=== PATIENT | male | born 1955 | race African-American/Black ===

== ENCOUNTER 2017-08-30 10:02 | Inpatient (IN) | payer OTHER ==
[2017-08-29 13:26] VITALS: BMI 29.0
[2017-08-30] MEDS ORDERED: TRANEXAMIC ACID 1000 MG/10 ML VIAL IVPUSH ONE (10:47)
[2017-08-30] MEDS ORDERED: oxyCODONE HCL 10 MG SUSTAINED ACTING TABLET PO ONE (10:47)
[2017-08-30] MEDS ORDERED: CELECOXIB 200 MG CAPSULE PO ONE (10:47)
[2017-08-30] MEDS ORDERED: CEFAZOLIN 2 GM in DEXTROSE 5%-WATER - 50 ML IVPB ONE (10:47)
[2017-08-30] MEDS ORDERED: VANCOMYCIN 1,000 MG in DEXTROSE 5%-WATER - 250 ML IVPB ONE (10:47)
[2017-08-30] MEDS ORDERED: DEXAMETHASONE SOD PHOSPHATE/PF 10 MG/ML SDV ONE (12:59)
[2017-08-30] MEDS ORDERED: MIDAZOLAM HCL 2 MG/2 ML SINGLE DOSE VIAL ONE (12:59)
[2017-08-30] MEDS ORDERED: BUPIVACAINE HCL/PF (5 MG/ML) 30 ML VIAL IJ ONE (13:00)
[2017-08-30] MEDS ORDERED: VANCOMYCIN 1,000 MG VIAL (RESTRICTED TO ID ONLY) ONE (14:05)
[2017-08-30] MEDS ORDERED: ceFAZolin SODIUM 1 GM VIAL ONE (14:05)
[2017-08-30] MEDS ORDERED: PROPOFOL 20 ML ONE ×2 (14:06→14:44)
[2017-08-30] MEDS ORDERED: ONDANSETRON 4 MG/2 ML VIAL ONE (14:11)
[2017-08-30] MEDS ORDERED: BENZOIN/ALOE VERA/STORAX/TOLU 58 ML BOTTLE ONE (15:21)
[2017-08-30] MEDS ORDERED: LACTATED RINGERS SOLUTION 1,000 ML IV SCH (16:00)
[2017-08-30] MEDS ORDERED: ONDANSETRON 4 MG/2 ML VIAL IVPUSH PRN ×2 (16:00→16:20)
[2017-08-30] MEDS ORDERED: traMADol HCL 50 MG TABLET PO SCH (16:15)
[2017-08-30] MEDS ORDERED: INSULIN SLIDING SCALE (NOVOLOG) 1 VIAL SQ ONE (16:15)
[2017-08-30] MEDS ORDERED: traMADol HCL 50 MG TABLET ONE (16:19)
[2017-08-30] MEDS ORDERED: traMADol HCL 50 MG TABLET PO ONE (16:20)
--- NOTE | 2017-08-30 17:05 | OP ---
Operative Note - Note: Operative Date: 08/30/17 Pre-Operative Diagnosis: Left partial thickness quadriceps tendon tear Operation: Open repair left quadriceps tendon tear Post-Operative Diagnosis: Same as Pre-op Surgeon: Dyllan Curtis Herb Counselor: Vincent Curtis Anesthesiologist/OCCUPATIONAL THERAPY PROFESSOR: Irene Hickman Anesthesia: Spinal Estimated Blood Loss (mls): 0 Fluid Volume Replaced (mls): 1,000 Operative Report Dictated: Yes
--- NOTE | 2017-08-30 17:09 | PN ---
Progress Note (short form) - Note Progress Note: 62M s/p open repair left quadriceps tendon tear POD #0. -NWB LLE; crutch training. -No Left Knee ROM; maintain [place] brace locked in extension. -Pain control. -DVT PPx: -Chemical: ASA 81mg PO BID x 6 weeks. -Mechanical: JOAN's, SCD's. -Incentive spirometry. -PT/OT/Rehab, OOB. -NWB LLE. -No L knee ROM. -Maintain [place] brace locked in extension. -f/u post-op TOV. -f/u AM labs. -Care per primary medical team. -Tight glycemic control. -Discharge planning: f/u [facility] [place] office 09/07/2017. Call for appointment: . -Will follow. Dyllan Curtis MD (Orthopaedic Surgery).
[2017-08-30] MEDS: LACTATED RINGERS SOLUTION 1,000 ML IV SCH (18:32)
[2017-08-30] MEDS: INSULIN SLIDING SCALE (NOVOLOG) 1 VIAL SQ SCH ×2 (18:32→22:03)
[2017-08-30] MEDS: INSULIN (NOVOLOG) ASPART 100 UNITS/ML 10ML VIAL SQ SCH (18:33)
[2017-08-30] MEDS: traMADol HCL 50 MG TABLET PO SCH ×2 (18:34→23:49)
--- NOTE | 2017-08-30 19:26 | OP ---
DATE OF OPERATION: 08/30/2017 PREOPERATIVE DIAGNOSIS: Quadriceps tendon rupture. POSTOPERATIVE DIAGNOSIS: Quadriceps tendon rupture. OPERATION PERFORMED: Repair of quadriceps mechanism with FiberWire and Vicryl. SURGEON: Dyllan Curtis MD BLOCK CUBER: Vincent Curtis MD; GREYSON Jeffrey. ANESTHESIA: Spinal epidural with conscious sedation. ANTIBIOTICS GIVEN: Kefzol 2 g, vancomycin 1 g. DESCRIPTION OF PROCEDURE: Patient was correctly identified, brought into the operating room. The left lower extremity was prepped, free draped in the routine manner with Betadine scrub solution, wiped off with alcohol, DuraPrep applied. Midline incision was utilized. Initially, superficially, the tissues appeared to be completely normal. The rent above the patella was readily palpable. This was longitudinally opened, and the entire rupture of the quadriceps tendon noted from medial side to lateral side. Number 1 Vicryl interrupted sutures were placed in order to hold the tendon. Two Krackow sutures were utilized with Ethibond. Two drill holes were made in the patella using a Slade needle. This was fed through the actual holes drilled in the patella. This then enabled the placed Krackow sutures to be delivered as long threads through the holes in the patella and tied inferiorly to augment a bone-patella fixation. The wounds were thoroughly lavaged. Closure quadriceps tendon 1 Vicryl as noted, subcutaneous 1 and 2-0 Vicryl, skin 3-0 Monocryl, Steri-Strips. No drainage utilized. A [place] brace in extension applied. Operation went well. No complications. PLAN: Six weeks of 0 flexion, followed by gradual increased range of movement 20 degrees per week until full 3 months have transpired. MD HILARY Baez/[id number] MTDD
[2017-08-30] MEDS: ASPIRIN COATED 81 MG TABLET.EC PO SCH (21:28)
[2017-08-30] MEDS: SENNOSIDES/DOCUSATE COMBO (SENNA PLUS) TABLET (UD) PO SCH (21:28)
[2017-08-30] MEDS: ceFAZolin 2 GRAM PREMIX BAG IVPB SCH (21:28)
[2017-08-30] MEDS ORDERED: ATORVASTATIN CA 40 MG TABLET (FP) PO SCH (22:00)
[2017-08-30] MEDS ORDERED: ASPIRIN 325 MG TABLET PO SCH (22:00)
[2017-08-31] MEDS: ceFAZolin 2 GRAM PREMIX BAG IVPB SCH (05:46)
[2017-08-31] MEDS: traMADol HCL 50 MG TABLET PO SCH ×3 (05:47→17:03)
[2017-08-31] MEDS ORDERED: metFORMIN HCL 500 MG TABLET (FP) PO SCH (07:00)
[2017-08-31] MEDS ORDERED: INSULIN (LEVEMIR) 100 UNITS/ML UNITS SQ SCH (07:00)
[2017-08-31] MEDS ORDERED: sitaGLIPtin PHOSPHATE 50 MG TABLET PO SCH (07:00)
[2017-08-31] MEDS: INSULIN (NOVOLOG) ASPART 100 UNITS/ML 10ML VIAL SQ SCH ×3 (07:58→17:05)
[2017-08-31] MEDS: INSULIN SLIDING SCALE (NOVOLOG) 1 VIAL SQ SCH ×3 (07:58→17:05)
[2017-08-31] MEDS: ASPIRIN COATED 81 MG TABLET.EC PO SCH (09:52)
[2017-08-31] MEDS: SENNOSIDES/DOCUSATE COMBO (SENNA PLUS) TABLET (UD) PO SCH (09:53)
[2017-08-31] MEDS ORDERED: LOSARTAN POTASSIUM 50 MG TABLET (FP) PO SCH (10:00)
[2017-08-31] MEDS ORDERED: PANTOPRAZOLE 40 MG TABLET (FP) PO SCH (10:00)
[2017-08-31] MEDS ORDERED: MULTIVITAMINS (DAILY MVI) TABLET (FP) PO SCH (10:00)
--- NOTE | 2017-08-31 10:45 | CONSULT ---
Consultation: REQUESTING PROVIDER: Dr Curtis CONSULT REQUEST: We have been asked to medically evaluate this patient for medical management . HISTORY OF PRESENT ILLNESS: is a 62-year-old male with a past medical history of insulin-dependent diabetes and hypertension. patient is postoperative day one left quadricep tendon repair,Dr Curtis REVIEW OF SYSTEMS: CONSTITUTIONAL: Absent: fever, chills, diaphoresis, generalized weakness, malaise, loss of appetite, weight change HEENT: Absent: rhinorrhea, nasal congestion, throat pain, throat swelling, difficulty swallowing, mouth swelling, ear pain, eye pain, visual changes CARDIOVASCULAR: Absent: chest pain, syncope, palpitations, irregular heart rate, lightheadedness , peripheral edema RESPIRATORY: Absent: cough, shortness of breath, dyspnea with exertion, orthopnea, wheezing, stridor, hemoptysis GASTROINTESTINAL: Absent: abdominal pain, abdominal distension, nausea, vomiting, diarrhea, constipation, melena, hematochezia GENITOURINARY: Absent: dysuria, frequency, urgency, hesitancy, hematuria, flank pain, genital pain MUSCULOSKELETAL: Absent: myalgia, arthralgia, joint swelling, back pain, neck pain SKIN: Absent: rash, itching, pallor HEMATOLOGIC/IMMUNOLOGIC: Absent: easy bleeding, easy bruising, lymphadenopathy, frequent infections ENDOCRINE: Absent: unexplained weight gain, unexplained weight loss, heat intolerance, cold intolerance NEUROLOGIC: Absent: headache, focal weakness or paresthesias, dizziness, unsteady gait, seizure, mental status changes, bladder or bowel incontinence PSYCHIATRIC: Absent: anxiety, depression, suicidal or homicidal ideation, hallucinations. PHYSICAL EXAMINATION Vital Signs - 24 hr 08/30/17 08/30/17 08/30/17 11:39 15:56 16:00 Temperature 98.2 F 97.6 F Pulse Rate 84 78 69 Respiratory 18 18 18 Rate Blood Pressure 172/96 165/90 159/99 O2 Sat by Pulse 99 99 Oximetry (%) 08/30/17 08/30/17 08/30/17 16:05 16:10 16:25 Temperature Pulse Rate 79 75 79 Respiratory 18 18 18 Rate Blood Pressure 160/96 146/93 150/91 O2 Sat by Pulse 98 100 100 Oximetry (%) 08/30/17 08/30/17 08/30/17 16:40 16:55 17:10 Temperature 97.6 F Pulse Rate 79 81 82 Respiratory 18 18 18 Rate Blood Pressure 150/91 146/94 161/95 O2 Sat by Pulse 100 100 100 Oximetry (%) 08/30/17 08/30/17 08/30/17 17:20 17:55 20:07 Temperature 97.9 F 97.8 F Pulse Rate 84 84 Respiratory 16 16 16 Rate Blood Pressure 159/96 159/95 O2 Sat by Pulse 100 100 Oximetry (%) 08/30/17 08/31/17 08/31/17 21:50 06:22 08:25 Temperature 97.8 F 98.2 F Pulse Rate 101 H 105 H Respiratory 19 19 Rate Blood Pressure 160/82 177/91 O2 Sat by Pulse 97 96 96 Oximetry (%) GENERAL: Awake, alert, and fully oriented, in no acute distress. HEAD: Normal with no signs of trauma. EYES: Pupils equal, round and reactive to light, extraocular movements intact, sclera anicteric, conjunctiva clear. No lid lag. EARS, NOSE, THROAT: Ears normal, nares patent, oropharynx clear without exudates. Moist mucous membranes. NECK: Normal range of motion, supple without lymphadenopathy, JVD, or masses. LUNGS: Breath sounds equal, clear to auscultation bilaterally. No wheezes, and no crackles. No accessory muscle use. HEART: Regular rate and rhythm, normal S1 and S2 without murmur, rub or gallop. ABDOMEN: Soft, nontender, not distended, normoactive bowel sounds, no guarding, no rebound, no masses. No hepatomegaly or splenomegaly. MUSCULOSKELETAL: Normal range of motion at all joints. No bony deformities or tenderness. No CVA tenderness. UPPER EXTREMITIES: 2+ pulses, warm, well-perfused. No cyanosis. No clubbing. Cap refill <2 seconds. No peripheral edema. LOWER EXTREMITIES: 2+ pulses, warm, well-perfused. No calf tenderness. No peripheral edema. LEFT LOWER EXTREMITY: BEDSOE brace, dressings CDI, less than 2 second capillary refill plus for pedal pulse patient is able to move the digits of the foot without any difficulty Sal's/SCDs NEUROLOGICAL: Cranial nerves II-XII intact. Normal speech. Normal gait. PSYCHIATRIC: Cooperative. Good eye contact. Appropriate mood and affect. SKIN: Warm, dry, normal turgor, no rashes or lesions noted. Laboratory Results - last 24 hr 08/30/17 08/30/17 08/30/17 11:16 16:11 21:59 POC Glucometer 261 232 336 08/31/17 05:35 POC Glucometer 312 Active Medications Generic Name Dose Route Start Last Admin Trade Name Freq PRN Reason Stop Dose Admin Aspirin 81 mg 08/30/17 22:00 08/31/17 09:52 Ecotrin - PO 81 mg BID YENNY Administration Atorvastatin Calcium 40 mg 08/30/17 22:00 08/30/17 21:28 Lipitor - PO 40 mg HS YENNY Administration Fentanyl 50 mcg 08/30/17 16:20 Sublimaze Injection - IVPUSH [id number] PRN PAIN-PACU ORDER X 4 DOSES ONLY Lactated Ringer's 1,000 mls @ 75 mls/hr 08/30/17 16:30 08/30/17 18:32 Lactated Ringers Solution IV Not Given ASDIR YENNY Insulin Aspart 10 units 08/30/17 16:30 08/31/17 07:58 Novolog Vial SQ 10 units TIDAC YENNY Administration Insulin Aspart 1 vial 08/30/17 16:30 08/31/17 07:58 Novolog Vial Sliding Scale - SQ Not Given ACHS [facility] Protocol Insulin Detemir 30 units 08/31/17 07:00 08/31/17 07:58 Levemir Vial SQ 30 units AM YENNY Administration Losartan Potassium 100 mg 08/31/17 10:00 08/31/17 09:53 Cozaar - PO 100 mg DAILY YENNY Administration Metformin HCl 500 mg 08/31/17 07:00 08/31/17 06:05 Glucophage - PO 500 mg AM YENNY Administration Multivitamins/Minerals/Vitamin C 1 tab 08/31/17 10:00 08/31/17 09:53 Tab-A-Vit - PO 1 tab DAILY YENNY Administration Ondansetron HCl 4 mg 08/30/17 16:00 Zofran Injection IVPUSH Q6H PRN NAUSEA Ondansetron HCl 4 mg 08/30/17 16:20 Zofran Injection IVPUSH Q6H PRN NAUSEA AND/OR VOMITING Oxycodone/Acetaminophen 1 combo 08/30/17 16:06 08/31/17 09:47 Percocet 5/325 - PO 1 combo Q6H PRN Administration PAIN LEVEL 6-10 Pantoprazole Sodium 40 mg 08/31/17 10:00 08/31/17 09:49 Protonix - PO 40 mg DAILY YENNY Administration Senna/Docusate Sodium 1 tablet 08/30/17 22:00 08/31/17 09:53 Pericolace - PO 1 tablet BID YENNY Administration Sitagliptin Phosphate 50 mg 08/31/17 07:00 08/31/17 06:05 Januvia - PO 50 mg AM YENNY Administration Tramadol HCl 50 mg 08/30/17 16:16 08/31/17 05:47 Ultram - PO 50 mg Q6HPO YENNY Administration ASSESSMENT/PLAN: 1) MS s/p left quadricep repair, POD #1 - when necessary pain medication -Nonweightbearing to left lower extremity which brace as per the orthopedist - physical Therapy as per the orthopedist 2) endo IDDM - continue Lantus, fingersticks before meals and at bedtime with regular insulin coverage and Januvia 3) cardiovascular Hypertension - Continue Cozaar - Blood pressure every 4 hours, above goal secondary to pain, close monitoring Dispo: We will continue to follow the patient. Thank you for this consultative opportunity. Visit type - Emergency Visit Emergency Visit: No - New Patient This patient is new to me today: Yes Date on this admission: 08/31/17 - Critical Care Critical Care patient: No
--- NOTE | 2017-08-31 11:06 | PN ---
Progress Note, Physician Chief Complaint: d/p left quad tendon repair. post op day one. History of Present Illness: spinal anesthesia - Current Medication List Current Medications: Active Medications Aspirin (Ecotrin -) 81 mg PO BID [facility] Last Admin: 08/31/17 09:52 Dose: 81 mg Atorvastatin Calcium (Lipitor -) 40 mg PO HS [facility] Last Admin: 08/30/17 21:28 Dose: 40 mg Fentanyl (Sublimaze Injection -) 50 mcg IVPUSH [id number] PRN PRN Reason: PAIN-PACU ORDER X 4 DOSES ONLY Lactated Ringer's (Lactated Ringers Solution) 1,000 mls @ 75 mls/hr IV ASDIR [facility] Last Admin: 08/30/17 18:32 Dose: Not Given Insulin Aspart (Novolog Vial) 10 units SQ TIDAC [facility] Last Admin: 08/31/17 07:58 Dose: 10 units Insulin Aspart (Novolog Vial Sliding Scale -) 1 vial SQ ACHS [facility]; Protocol Last Admin: 08/31/17 07:58 Dose: Not Given Insulin Detemir (Levemir Vial) 30 units SQ AM [facility] Last Admin: 08/31/17 07:58 Dose: 30 units Losartan Potassium (Cozaar -) 100 mg PO DAILY [facility] Last Admin: 08/31/17 09:53 Dose: 100 mg Metformin HCl (Glucophage -) 500 mg PO AM [facility] Last Admin: 08/31/17 06:05 Dose: 500 mg Multivitamins/Minerals/Vitamin C (Tab-A-Vit -) 1 tab PO DAILY [facility] Last Admin: 08/31/17 09:53 Dose: 1 tab Ondansetron HCl (Zofran Injection) 4 mg IVPUSH Q6H PRN PRN Reason: NAUSEA Ondansetron HCl (Zofran Injection) 4 mg IVPUSH Q6H PRN PRN Reason: NAUSEA AND/OR VOMITING Oxycodone/Acetaminophen (Percocet 5/325 -) 1 combo PO Q6H PRN PRN Reason: PAIN LEVEL 6-10 Last Admin: 08/31/17 09:47 Dose: 1 combo Pantoprazole Sodium (Protonix -) 40 mg PO DAILY [facility] Last Admin: 08/31/17 09:49 Dose: 40 mg Senna/Docusate Sodium (Pericolace -) 1 tablet PO BID [facility] Last Admin: 08/31/17 09:53 Dose: 1 tablet Sitagliptin Phosphate (Januvia -) 50 mg PO AM [facility] Last Admin: 08/31/17 06:05 Dose: 50 mg Tramadol HCl (Ultram -) 50 mg PO Q6HPO [facility] Last Admin: 08/31/17 05:47 Dose: 50 mg - Objective Vital Signs: Vital Signs Temperature 98.2 F 08/31/17 06:22 Pulse Rate 105 H 08/31/17 06:22 Respiratory Rate 19 08/31/17 06:22 Blood Pressure 177/91 08/31/17 06:22 O2 Sat by Pulse Oximetry (%) 96 08/31/17 08:25 Constitutional: Yes: Well Nourished Cardiovascular: Yes: WNL Respiratory: Yes: WNL Gastrointestinal: Yes: WNL Assessment/Plan Patient doing well, neurologic function returned, no adverse effects, pain controlled, will sign off care at this time
--- NOTE | 2017-08-31 13:44 | PN ---
Progress Note (short form) - Note Progress Note: PT states that he has been oob to bathroom with assistance, awaiting PT today. Voiding wihtout difficulty, no CP/SOB. Vital Signs Period Temp Pulse Resp BP Sys/Mianya Pulse Ox Last 24 Hr 97.6 F-98.2 F 69-114 16-19 141-177/82-103 96-100 GEN: appears comfortable CV: RR, slightly tachycardic Lungs: CTA b/l Left leg: dressing c/d/i with brace in place. 5/5 dorsi/plantar flexion b/l +2 DP pulse, sensation intact. A/P: 62 yo male s/p left quadriceps repair, POD#1 Pt for PT today, brace to remain in locked position without any ROM/no weight bearing on that extremity. Pain management as tolerated Pt with slight elevated BP today/mild tachycardia, possibly secondary to pain issues will continue ultram scheduled and oxycodone for breakthru For possible discharge today if BP/HR aaron D/w Dr. Curtis the care/discarhge plan of the pt
[2017-08-31 16:16] VITALS: BP 169/85; PULSE 95; TEMP 98.6
[2017-08-31] MEDS: LACTATED RINGERS SOLUTION 1,000 ML IV SCH (17:00)
== END 2017-08-31 19:17 | disposition home or self-care (01) | DRG 502 ==
LOC: FM/S 10:02 → EDSTATUS 13:00 → FM/S 17:27
PROVIDERS: ADMIT Orthopaedic Surgery Orthopaedic Surgery of the Spine; ATTEND Orthopaedic Surgery Orthopaedic Surgery of the Spine
PROC: 0LQK0ZZ Repair Left Hip Tendon, Open Approach (ICD-10-PCS; principal; 2017-08-30 14:28)
DX: S76.112A Strain of left quadriceps muscle, fascia and tendon, initial encounter (principal); S73.192A Other sprain of left hip, initial encounter; X58.XXXA Exposure to other specified factors, initial encounter; Y93.89 Activity, other specified; Y92.89 Other specified places as the place of occurrence of the external cause; Y99.8 Other external cause status; E11.9 Type 2 diabetes mellitus without complications; Z79.4 Long term (current) use of insulin; I10 Essential (primary) hypertension
CPT/HCPCS: 82962; 94760; 97116-GP; 97162-GP

== ENCOUNTER 2019-12-06 10:16 | Day surgery (SDC) | payer OTHER ==
[2019-12-03 09:48] VITALS: BMI 29.5
[2019-12-06] MEDS ORDERED: SUCCINYLCHOLINE CHLORIDE 200 MG/10 ML SYRINGE ONE (12:54)
[2019-12-06] MEDS ORDERED: MIDAZOLAM HCL 2 MG/2 ML SINGLE DOSE VIAL ONE (12:54)
[2019-12-06] MEDS ORDERED: PROPOFOL 20 ML ONE ×2 (12:54)
[2019-12-06] MEDS ORDERED: LIDOCAINE HCL/PF 2% SDV 5ML VIAL ONE ×2 (12:55→13:35)
[2019-12-06] MEDS ORDERED: LIDOCAINE HCL 2% (20ML MULTI-DOSE VIAL) ONE (13:20)
[2019-12-06] MEDS ORDERED: BENZOIN/ALOE VERA/STORAX/TOLU 58 ML BOTTLE ONE (13:22)
[2019-12-06] MEDS ORDERED: ONDANSETRON 4 MG/2 ML VIAL ONE (13:35)
[2019-12-06] MEDS ORDERED: ceFAZolin SODIUM 1 GM VIAL ONE (13:35)
[2019-12-06] MEDS ORDERED: DEXAMETHASONE SOD PHOSPHATE 4 MG/1 ML VIAL ONE (13:35)
[2019-12-06] MEDS ORDERED: KETOROLAC TROMETHAMINE 30 MG/1 ML VIAL ONE (13:35)
[2019-12-06] MEDS ORDERED: LIDOCAINE HCL 2% JELLY (5 ML/TUBE) ONE (13:35)
--- NOTE | 2019-12-06 13:50 | PN ---
Progress Note (short form) - Note Progress Note: 64M s/p RIGHT wrist open deQuervain's release POD #0. -Pain control: Percocet, Duexis ordered to pharmacy for analgesia; OK to use OTC NSAID's instead. -Incentive spirometry. -STRICT NWB RUE. -Keep dressing clean & dry. -Elevate wrist/hand above level of heart. -Discharge home: f/u [facility] [place] Office 7-10 days; call for appointment: . Dyllan Curtis MD (Orthopaedic Surgery).
--- NOTE | 2019-12-06 13:51 | OP ---
Operative Note - Note: Operative Date: 12/06/19 Pre-Operative Diagnosis: Right wrist deQuervain's tenosynovitis Operation: Open right wrist 1st dorsal extensor compartment (deQuervain's) release Findings: Tourniquet Pressure: 250mmHg Tourniquet Time: 16 minutes Post-Operative Diagnosis: Same as Pre-op Surgeon: Dyllan Curtis Instrument Repair Specialist: Vincent Curtis Anesthesiologist/PAPERHANGER PIPE: Joanne Tuttle Anesthesia: General Fluid Volume Replaced (mls): 400 (Crystalloid) Operative Report Dictated: Yes
[2019-12-06] MEDS ORDERED: LABETALOL HCL 5 MG/1 ML (100MG/20 ML VIAL) ONE (14:20)
[2019-12-06] MEDS ORDERED: oxyCODONE HCL 5 MG TABLET PO PRN ×2 (14:23)
[2019-12-06] MEDS ORDERED: ONDANSETRON 4 MG/2 ML VIAL IVPUSH PRN (14:23)
[2019-12-06] MEDS ORDERED: PROMETHAZINE HCL 25 MG/1 ML VIAL IVPUSH PRN (14:23)
[2019-12-06] MEDS ORDERED: LABETALOL HCL 5 MG/1 ML (100MG/20 ML VIAL) IVPUSH ONE (14:25)
[2019-12-06 15:08] VITALS: TEMP 97.9
[2019-12-06 15:55] VITALS: BP 167/96; PULSE 81
--- NOTE | 2019-12-06 18:01 | OP ---
DATE OF OPERATION: 12/06/2019 SURGEON: Dyllan Curtis MD. CO-SURGEON: Vincent Curtis MD PREOPERATIVE DIAGNOSIS: De Quervain tenosynovitis, right upper extremity. POSTOPERATIVE DIAGNOSIS: De Quervain tenosynovitis, right upper extremity. OPERATION PERFORMED: Right De Quervain release. ([id number]) ANESTHESIA: General. ANTIBIOTICS USED: Ancef 2 g. OPERATION DETAILS: The patient was correctly identified and brought to the operating room. The right upper extremity was prepped and draped in a routine manner with Betadine scrub solution wiped off with alcohol and DuraPrep applied. In the bloodless field an incision transversely was made over the lump of the distal end of the jessica of the tendons involved in the entrapment of this lesion. The skin was opened transversely. Dissection was made subcutaneously and longitudinally to avoid any injury to the branches of the superficial radial nerve. The dissection was taken down to the cartilaginous appearing lump. This was incised longitudinally in relation to the tendons and using Metzenbaum scissors the entire stenosing region was opened visualizing all 3 tendons. These were freed completely. Movement of the thumb confirmed free movement on the tendons. The cartilaginous material was left to form a bridge of fibrous tissue across this to disallow any bolstering of the tendons. Closure of the skin was done with 3-0 nylon vertical mattress sutures. MD HILARY Baez/[id number] MTDD
== END 2019-12-06 15:55 | disposition home or self-care (01) ==
LOC: FASU 10:16
PROVIDERS: ATTEND Orthopaedic Surgery Orthopaedic Surgery of the Spine
PROC: 0LN50ZZ Release Right Lower Arm and Wrist Tendon, Open Approach (ICD-10-PCS; principal; 2019-12-06 13:50)
DX: M65.4 Radial styloid tenosynovitis [de Quervain] (principal)
CPT/HCPCS: 82962; 94760